=== PATIENT | female | born 1945 | race Caucasian/White ===

== ENCOUNTER 2017-09-02 22:50 | Observation (INO) | payer MEDICARE ==
--- NOTE | 2017-09-02 23:08 | ED ---
General Adult HPI - General Chief complaint: Neuro Symptoms/Deficit Stated complaint: numbing arm X1week Time Seen by Provider: 09/02/17 23:07 Source: patient Mode of arrival: ambulatory Limitations: no limitations - History of Present Illness Initial comments: Fang is a 72-year-old female with a past medical history significant for hypertension and obesity who presents to the emergency department today for evaluation of left shoulder discomfort, chest tightness and fatigue. Patient reports that she usually has a very active lifestyle, however over the past 3 weeks she reports she has felt very fatigued. She states that on Wednesday she did some yard work and became very fatigued and had some back and neck pain. On Wednesday she saw her chiropractor with some improvement in her back and neck pain. However she feels as though throughout the week all she has been able to do his nap and she continues to feel tired. She states that she feels like she cannot get everything she needs to get done done because she is so tired. She states that throughout the week she has noted some intermittent palpitations in her chest but no crushing chest pain. She states that throughout the week she has also noticed some tightness in her left shoulder which she describes as feeling tight and then feeling a warm sensation in her left shoulder radiating down her left arm. She states this happened only intermittently at the beginning week but seems to be happening more frequently and lasting for longer periods of time. She cannot identify any exacerbating or relieving factors to this tightness in her shoulder. It does not seem to be related to movement of her neck or back or arm. It does not seem to be related to exertion or emotional stress. He has never experienced anything like this in the past. The patient denies any fevers, chills, nausea, vomiting any shortness of breath or diaphoresis. She does experience mild chest discomfort and palpitations intermittently throughout the week. She states that this evening she was having some discomfort in her shoulder and fatigue and palpitations, she told her daughter about this and her daughter advised her that they needed to come to the emergency department for evaluation of possible cardiac etiology of her symptoms. Patient states she was then looking online and became concerned that this may be cardiac in nature. She took 3 full dose aspirin and her daughter brought her to the ER for evaluation. Patient states that she has a very strong family history of cardiac disease. Her father had a fatal MS at the age of 59 and her sister had a fatal MS at the age of 52 last month. She states that she was never smoker but her late was a very heavy smoker and she was exposed to many years of secondhand smoke. - Related Data Home Medications Medication Instructions Recorded Confirmed Aspirin 975 mg PO ONCE PRN 09/02/17 09/02/17 Cetirizine HCl [Zyrtec] 10 mg PO DAILY 09/02/17 09/02/17 Estrogens, Conjugated [Premarin] 0.625 mg PO DAILY 09/02/17 09/02/17 Famotidine [Pepcid] 20 mg PO DAILY 09/02/17 09/02/17 Furosemide [Lasix] 20 mg PO DAILY 09/02/17 09/02/17 Losartan Potassium 100 mg PO DAILY 09/02/17 09/02/17 Metoprolol Tartrate [Lopressor] 25 mg PO DAILY 09/02/17 09/02/17 amLODIPine [Norvasc] 10 mg PO DAILY 09/02/17 09/02/17 metFORMIN HCL [Glucophage] 500 mg PO BID 09/02/17 09/02/17 Allergies Allergy/AdvReac Type Severity Reaction Status Date / Time No Known Allergies Allergy Verified 09/02/17 23:23 Review of Systems ROS Statement: Those systems with pertinent positive or pertinent negative responses have been documented in the HPI. ROS Other: All systems not noted in ROS Statement are negative. Constitutional: Denies: fever, weakness Eyes: Denies: eye pain, vision change ENT: Denies: ear pain, throat pain Respiratory: Denies: cough, dyspnea Cardiovascular: Reports: chest pain, palpitations, edema Endocrine: Reports: fatigue Gastrointestinal: Denies: abdominal pain, nausea, vomiting Genitourinary: Denies: urgency, dysuria Musculoskeletal: Reports: back pain (chronic) Skin: Denies: rash, lesions Neurological: Denies: headache, weakness, numbness, paresthesias, confusion Psychiatric: Denies: anxiety, depression Hematological/Lymphatic: Denies: easy bleeding, easy bruising 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 Absent: respiratory distress Cardiovascular Exam: Present: regular rate, normal rhythm GI/Abdominal exam: Present: soft. Absent: distended Rectal exam: Present: deferred Extremities exam: Present: normal inspection, full ROM, normal capillary refill , pedal edema Back exam: Present: normal inspection, full ROM. Absent: CVA tenderness (R), CVA tenderness (L) Neurological exam: Present: alert, oriented X3 Psychiatric exam: Present: normal affect, normal mood Skin exam: Present: warm, dry, intact Course Vital Signs 09/02/17 22:55 Temperature 97.8 F Pulse Rate 81 Respiratory 18 Rate Blood Pressure 156/79 O2 Sat by Pulse 97 Oximetry Medical Decision Making - Medical Decision Making The patient was seen and evaluated, history was obtained from the patient and her daughter at bedside. Patient with 3 weeks of fatigue, 6 days of palpitations, intermittent chest pressure and fatigue Heart score - 5 (Age, Moderate suspicion, risk factors - HTN, HLD, DM, Family History) EKG was taken 12:04 AM - heart rate is 65, rhythm is sinus, there is normal axis , normal intervals, noted to be some T-wave inversions in V3 as well as Q waves diffusely. There is no acute ST elevations or depressions. There are no hyperacute T waves or evidence of acute ischemia, infarction or arrhythmia Labs with no significant abnormalities Troponin and BNP are negative At this time considering the patient's significant history and risk factors I do feel she warrants observation in the hospital for further evaluation by cardiology. Patient care was discussed with Dr. Root who agrees and requests that the patient be given nitro ointment, heparin and have a consult to cardiology as well as an echo ordered. These orders as well as admission orders were placed. Patient and daughter were updated on plan of patient is agreeable. - Lab Data Result diagrams: 09/03/17 00:02 09/03/17 00:02 Lab Results 09/03/17 09/03/17 09/03/17 Range/Units 00:02 00:02 00:02 WBC 8.9 (3.8-10.6) k/uL RBC 4.87 (3.80-5.40) m/uL Hgb 15.1 (11.4-16.0) gm/dL Hct 44.9 (34.0-46.0) % MCV 92.2 (80.0-100.0) fL MCH 30.9 (25.0-35.0) pg MCHC 33.5 (31.0-37.0) g/dL RDW 12.8 (11.5-15.5) % Plt Count 222 (150-450) k/uL Neutrophils % 51 % Lymphocytes % 35 % Monocytes % 8 % Eosinophils % 4 % Basophils % 0 % Neutrophils # 4.5 (1.3-7.7) k/uL Lymphocytes # 3.1 (1.0-4.8) k/uL Monocytes # 0.7 (0-1.0) k/uL Eosinophils # 0.3 (0-0.7) k/uL Basophils # 0.0 (0-0.2) k/uL PT (9.0-12.0) sec INR (<1.2) APTT (22.0-30.0) sec Sodium 140 (137-145) mmol/L Potassium 4.3 (3.5-5.1) mmol/L Chloride 103 (98-107) mmol/L Carbon Dioxide 24 (22-30) mmol/L Anion Gap 13 mmol/L BUN 17 (7-17) mg/dL Creatinine 0.50 L (0.52-1.04) mg/dL Est GFR (CKD-EPI)AfAm >90 (>60 ml/min/1.73 sqM) Est GFR (CKD-EPI)NonAf >90 (>60 ml/min/1.73 sqM) Glucose 164 H (74-99) mg/dL Calcium 9.8 (8.4-10.2) mg/dL Magnesium 1.5 L (1.6-2.3) mg/dL Total Bilirubin 0.2 (0.2-1.3) mg/dL AST 33 (14-36) U/L ALT 42 (9-52) U/L Alkaline Phosphatase 92 (38-126) U/L Troponin I (0.000-0.034) ng/mL NT-Pro-B Natriuret Pep 60 pg/mL Total Protein 6.6 (6.3-8.2) g/dL Albumin 4.0 (3.5-5.0) g/dL TSH 3.750 (0.465-4.680) mIU/L 09/03/17 09/03/17 Range/Units 00:02 00:02 WBC (3.8-10.6) k/uL RBC (3.80-5.40) m/uL Hgb (11.4-16.0) gm/dL Hct (34.0-46.0) % MCV (80.0-100.0) fL MCH (25.0-35.0) pg MCHC (31.0-37.0) g/dL RDW (11.5-15.5) % Plt Count (150-450) k/uL Neutrophils % % Lymphocytes % % Monocytes % % Eosinophils % % Basophils % % Neutrophils # (1.3-7.7) k/uL Lymphocytes # (1.0-4.8) k/uL Monocytes # (0-1.0) k/uL Eosinophils # (0-0.7) k/uL Basophils # (0-0.2) k/uL PT 10.6 (9.0-12.0) sec INR 1.1 (<1.2) APTT 23.6 (22.0-30.0) sec Sodium (137-145) mmol/L Potassium (3.5-5.1) mmol/L Chloride (98-107) mmol/L Carbon Dioxide (22-30) mmol/L Anion Gap mmol/L BUN (7-17) mg/dL Creatinine (0.52-1.04) mg/dL Est GFR (CKD-EPI)AfAm (>60 ml/min/1.73 sqM) Est GFR (CKD-EPI)NonAf (>60 ml/min/1.73 sqM) Glucose (74-99) mg/dL Calcium (8.4-10.2) mg/dL Magnesium (1.6-2.3) mg/dL Total Bilirubin (0.2-1.3) mg/dL AST (14-36) U/L ALT (9-52) U/L Alkaline Phosphatase (38-126) U/L Troponin I <0.012 (0.000-0.034) ng/mL NT-Pro-B Natriuret Pep pg/mL Total Protein (6.3-8.2) g/dL Albumin (3.5-5.0) g/dL TSH (0.465-4.680) mIU/L Disposition Clinical Impression: Chest pain Disposition: ADMITTED IP TO THIS HOSP Condition: Good Decision Time: 00:58
[2017-09-02] MEDS ORDERED: SODIUM CHLORIDE 0.9% 1,000 ML IV STA (23:36)
[2017-09-03 00:15] LABS: Basophils % (A) 0 %; Eosinophils # (A) 0.3 k/uL (0-0.7); Eosinophils % (A) 4 %; HCT 44.9 % (34.0-46.0); HGB 15.1 gm/dL (11.4-16.0); Lymphocytes # (A) 3.1 k/uL (1.0-4.8); Lymphocytes % (A) 35 %; MCH 30.9 pg (25.0-35.0); MCHC 33.5 g/dL (31.0-37.0); MCV 92.2 fL (80.0-100.0); Mean Platelet Volume 9.5; Monocytes # (A) 0.7 k/uL (0-1.0); Monocytes % (A) 8 %; Neutrophils # (A) 4.5 k/uL (1.3-7.7); Neutrophils % (A) 51 %; Platelet Count 222 k/uL (150-450); RBC 4.87 m/uL (3.80-5.40); RDW 12.8 % (11.5-15.5); WBC 8.9 k/uL (3.8-10.6)
[2017-09-03 00:22] LABS: ALT 42 U/L (9-52); AST 33 U/L (14-36); Alkaline Phosphatase 92 U/L (38-126); Anion Gap 13 mmol/L; Blood Urea Nitrogen 17 mg/dL (7-17); Calcium 9.8 mg/dL (8.4-10.2); Carbon Dioxide 24 mmol/L (22-30); Chloride 103 mmol/L (98-107); Glucose 164 mg/dL (74-99); Magnesium 1.5 mg/dL (1.6-2.3); Potassium 4.3 mmol/L (3.5-5.1); Sodium 140 mmol/L (137-145); Total Bilirubin 0.2 mg/dL (0.2-1.3); Total Protein 6.6 g/dL (6.3-8.2)
[2017-09-03 00:23] LABS: INR 1.1 (<1.2); Partial Thromboplastin Time 23.6 sec (22.0-30.0); Prothrombin Time 10.6 sec (9.0-12.0)
--- NOTE | 2017-09-03 00:46 | XR ---
EXAMINATION TYPE: XR chest 2V DATE OF EXAM: 09/03/2017 COMPARISON: NONE HISTORY: Fatigue TECHNIQUE: Frontal and lateral views of the chest are obtained. FINDINGS: There is no heart failure nor confluent pneumonic infiltrate. Costophrenic angles are gita r. There are chest leads. Bony thorax is intact. IMPRESSION: No active cardiopulmonary disease.
[2017-09-03] MEDS ORDERED: NALOXONE 0.4 MG/ML 1 ML VIAL IV PRN (00:54)
[2017-09-03] MEDS ORDERED: NITROGLYCERIN OINT 1 INCH/GM PACKET TOPICAL STA (00:59)
[2017-09-03] MEDS ORDERED: HEPARIN SODIUM,PORCINE 5,000 UNIT/ML 1 ML VIAL IV PRN (01:00)
[2017-09-03] MEDS ORDERED: HEPARIN SODIUM,PORCINE 5,000 UNIT/ML 1 ML VIAL IV ONE (01:00)
[2017-09-03] MEDS ORDERED: HEPARIN SODIUM,PORCINE/D5W PMX 25,000 UNIT in DEXTROSE/WATER 1 500ML.BAG IV SCH (01:15)
[2017-09-03 02:23] VITALS: BMI 37.3
[2017-09-03 06:56] LABS: Glucose,Whole Blood 120 mg/dL (75-99)
[2017-09-03 08:43] VITALS: RESP 18
[2017-09-03] MEDS ORDERED: amLODIPine 10 MG TAB PO SCH (10:45)
[2017-09-03] MEDS ORDERED: LOSARTAN 50 MG TAB PO SCH (10:45)
--- NOTE | 2017-09-03 10:56 | P.CRDCN ---
History of Present Illness History of present illness: Mrs. Rivas is a pleasant 72-year-old female past medical history significant for hypertension and diabetes mellitus. She also has significant family history of premature cardiac disease with her brother and sister mother and father all having premature coronary artery disease in their 50s. She denies personal history of coronary artery disease. She follows with in the office. We've been asked to see her in consultation for complaints of chest pain. She states she feels a tight sensation in the mid-sternal region and radiates to the left shoulder and down the left arm. Symptoms have been intermittent in nature off-and-on for the past couple of days. She has also had some mild shortness of breath, nausea, palpitations and diaphoresis. She denies associated dizziness, vomiting, PND or orthopnea. She states approximately 6 weeks ago she had some lower abdominal discomfort and nausea with nonspecific chest discomfort that lasted for a few days. Ever since then she has been increasingly fatigued with absolutely no energy. EKG reveals sinus mechanism with no acute ST or T-wave abnormalities. Chest x-ray negative for an acute cardiopulmonary process. Laboratory data reviewed, hemoglobin 15.1, platelets 222, sodium 140, potassium 4.3, magnesium 1.5, creatinine 0.5, cardiac enzymes negative 1, TSH 3.75. Current cardiac medications include Lopressor 25 mg daily, amlodipine 10 mg daily, aspirin when necessary, losartan 100 mg daily, Lasix 20 mg daily. She also takes metformin, Pepcid, Premarin and Zyrtec. Most recent echocardiogram performed in the office reveals preserved left ventricular systolic function with ejection fraction 55%. Review of Systems At the time my exam: CONSTITUTIONAL: Denies fever. Denies chills. EYES: Denies blurred vision. Denies vision changes. Denies eye pain. EARS, NOSE, MOUTH & THROAT: Denies headache. Denies sore throat. Denies ear pain. CARDIOVASCULAR: Complains of intermittent chest pain and left arm discomfort. Denies shortness of breath. Denies orthopnea. Denies PND. Denies palpitations. RESPIRATORY: Denies cough. GASTROINTESTINAL: Denies abdominal pain. Denies diarrhea. Denies constipation. Denies nausea. Denies vomiting. MUSCULOSKELETAL: Denies myalgias. INTEGUMENTARY: Denies pruitis. Denies rash. NEUROLOGIC: Denies numbness. Denies tingling. Denies weakness. PSYCHIATRIC: Denies anxiety. Denies depression. ENDOCRINE: Denies fatigue. Denies weight change. Denies polydipsia. Denies polyurina. GENITOURINARY: Denies burning, hematuria or urgency with micturation. HEMATOLOGIC: Denies history of anemia. Denies bleeding. 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 History of Any Multi-Drug Resistant Organisms: None Reported Past Surgical History: Cholecystectomy, Hysterectomy, Orthopedic Surgery Past Anesthesia/Blood Transfusion Reactions: No Reported Reaction Past Psychological History: No Psychological Hx Reported Smoking Status: Never smoker Past Alcohol Use History: Rare Past Drug Use History: None Reported Medications and Allergies Home Medications Medication Instructions Recorded Confirmed Type Aspirin 975 mg PO ONCE PRN 09/02/17 09/02/17 History Cetirizine HCl [Zyrtec] 10 mg PO DAILY 09/02/17 09/02/17 History Estrogens, Conjugated [Premarin] 0.625 mg PO DAILY 09/02/17 09/02/17 History Famotidine [Pepcid] 20 mg PO DAILY 09/02/17 09/02/17 History Furosemide [Lasix] 20 mg PO DAILY 09/02/17 09/02/17 History Losartan Potassium 100 mg PO DAILY 09/02/17 09/02/17 History Metoprolol Tartrate [Lopressor] 25 mg PO DAILY 09/02/17 09/02/17 History amLODIPine [Norvasc] 10 mg PO DAILY 09/02/17 09/02/17 History metFORMIN HCL [Glucophage] 500 mg PO BID 09/02/17 09/02/17 History Allergies Allergy/AdvReac Type Severity Reaction Status Date / Time No Known Allergies Allergy Verified 09/02/17 23:23 Physical Exam Vitals: Vital Signs Temp Pulse Pulse Resp BP BP Pulse Ox 09/03/17 08:25 98.1 F 68 18 150/65 93 L 09/03/17 07:43 95 09/03/17 03:00 16 09/03/17 02:05 98.4 F 63 16 139/64 95 09/03/17 01:41 62 16 133/61 96 09/02/17 22:55 97.8 F 81 18 156/79 97 Intake and Output 06/10/1309/03/17 09/03/17 22:59 06:59 14:59 Other: Voiding Method Toilet # Voids 1 Weight 107.955 kg 107.955 kg Blood pressure 150/65 heart rate 68 afebrile maintaining oxygen saturation on room air GENERAL: This is a 72-year-old female in no apparent distress at the time of my examination. HEENT: Head is atraumatic, normocephalic. Pupils are equal, round. Sclerae anicteric. Conjunctivae are clear. Mucous membranes of the mouth are moist. Neck is supple. There is no jugular venous distention. No carotid bruit is heard. LUNGS: Clear to auscultation no wheezes, rales or rhonchi. No chest wall tenderness is noted on palpation or with deep breathing. HEART: Regular rate and rhythm with systolic murmur at the base, no rubs or gallops. S1 and S2 heard. ABDOMEN: Soft, nontender. Bowel sounds are heard. No organomegaly noted. EXTREMITIES: No evidence of peripheral edema and no calf tenderness noted. VASCULAR: Radial and dorsalis pedis pulses palpated, no evidence of clubbing. NEUROLOGIC: Patient is awake, alert and oriented x3. Results 09/03/17 00:02 09/03/17 00:02 Cardiac Enzymes 09/03/17 09/03/17 Range/Units 00:02 00:02 AST 33 (14-36) U/L Troponin I <0.012 (0.000-0.034) ng/mL Coagulation 09/03/17 09/03/17 Range/Units 00:02 07:29 PT 10.6 (9.0-12.0) sec APTT 23.6 34.4 H (22.0-30.0) sec CBC 09/03/17 Range/Units 00:02 WBC 8.9 (3.8-10.6) k/uL RBC 4.87 (3.80-5.40) m/uL Hgb 15.1 (11.4-16.0) gm/dL Hct 44.9 (34.0-46.0) % Plt Count 222 (150-450) k/uL Comprehensive Metabolic Panel 09/03/17 Range/Units 00:02 Sodium 140 (137-145) mmol/L Potassium 4.3 (3.5-5.1) mmol/L Chloride 103 (98-107) mmol/L Carbon Dioxide 24 (22-30) mmol/L BUN 17 (7-17) mg/dL Creatinine 0.50 L (0.52-1.04) mg/dL Glucose 164 H (74-99) mg/dL Calcium 9.8 (8.4-10.2) mg/dL AST 33 (14-36) U/L ALT 42 (9-52) U/L Alkaline Phosphatase 92 (38-126) U/L Total Protein 6.6 (6.3-8.2) g/dL Albumin 4.0 (3.5-5.0) g/dL Current Medications Generic Name Dose Route Start Last Admin Trade Name Freq PRN Reason Stop Dose Admin Heparin Sodium (Porcine) 0 unit 09/03/17 01:00 Heparin IV PER PROTOCOL PRN Low PTT Protocol Heparin Sodium/Dextrose 25,000 500 mls @ 25.9 mls/hr 09/03/17 01:15 09/03/17 01:38 unit/ IV Solution IV 12 units/kg/hr .[id number] PAUL 25.9 mls/hr Protocol Administration 12 UNITS/KG/HR Naloxone HCl 0.2 mg 09/03/17 00:54 Narcan IV Q2M PRN Opioid Reversal Intake and Output 09/02/17 09/03/17 09/03/17 22:59 06:59 14:59 Other: Voiding Method Toilet # Voids 1 Weight 107.955 kg 107.955 kg 09/03/17 00:02 09/03/17 00:02 Assessment and Plan Assessment: ASSESSMENT 1. Chest pain, atypical. 2. Hypertension 3. Diabetes mellitus 4. Significant family history of heart disease 5. Hypomagnesemia PLAN Obtain 2D echcardiogram and doppler study to assess cardiac structure and function Obtain serial cardiac enzymes to assess for an acute coronary event. Once troponin is resulted we will make a decision regarding stress test. Add lipitor 40 mg daily to her regimen with her significant history. Check lipid profile. Thank you kindly for this consultation. Nurse Practitioner note has been reviewed, I agree with a documented findings and plan of care. Patient was seen and examined.
[2017-09-03] MEDS ORDERED: ATORVASTATIN 40 MG TAB PO SCH (11:00)
[2017-09-03 12:03] LABS: Cholesterol 197 mg/dL (<200); HDL Cholesterol 50 mg/dL (40-60); LDL Cholesterol,Calculated 101 mg/dL (0-99); Triglycerides 230 mg/dL (<150)
[2017-09-03 12:15] VITALS: BP 145/82; PULSE 73; TEMP 97.3
[2017-09-03 12:29] LABS: Glucose,Whole Blood 123 mg/dL (75-99)
--- NOTE | 2017-09-03 12:31 | ECHOF ---
Referral Reason:chest pain MEASUREMENTS -------- HEIGHT: 170.2 cm WEIGHT: 108.0 kg BP: 139/64 IVSd: 1.5 cm (0.6 - 1.1) LVIDd: 3.7 cm (3.9 - 5.3) LVPWd: 1.5 cm (0.6 - 1.1) IVSs: 2.1 cm LVIDs: 1.9 cm LVPWs: 2.2 cm LA Diam: 4.1 cm (2.7 - 3.8) Ao Diam: 3.1 cm (2.0 - 3.7) AV Cusp: 1.8 cm (1.5 - 2.6) LA Diam: 4.2 cm (2.7 - 3.8) MV EXCURSION: 9.371 mm (> 18.000) MV EF SLOPE: 52 mm/s (70 - 150) EPSS: 0.6 cm MV E Eliceo: 0.60 m/s MV DecT: 320 ms MV A Eliceo: 1.10 m/s MV E/A Ratio: 0.55 RAP: 5.00 mmHg RVSP: 13.09 mmHg FINDINGS -------- Sinus rhythm. This was a techncally difficult study with suboptimal views, , Lumason utilized for enhancement of im ages. The left ventricular size is normal. There is moderate concentric left ventricular hypertrophy. O verall left ventricular systolic function is low-normal with, an EF between 50 - 55 %. The right ventricle is normal in size. The left atrial size is normal. The right atrial size is normal. 5.0mg OF Lumason UTLIZED: 2 OR MORE WALL SEGMENTS NOT VISUALIZED. The aortic valve is trileaflet, and appears structurally normal. No aortic stenosis or regurgitation. Mild mitral annular calcification present. Mild mitral regurgitation is present. Mild tricuspid regurgitation present. There is no evidence of pulmonary hypertension. The right v entricular systolic pressure, as measured by Doppler, is 13.09mmHg. There is no pulmonic regurgitation present. The aortic root size is normal. There is no pericardial effusion. CONCLUSIONS -------- 1. This was a techncally difficult study with suboptimal views, , Lumason utilized for enhancement of images. 2. The left ventricular size is normal. 3. There is moderate concentric left ventricular hypertrophy. 4. Overall left ventricular systolic function is low-normal with, an EF between 50 - 55 %. 5. The right ventricle is normal in size. 6. The left atrial size is normal. 7. The right atrial size is normal. 8. 5.0mg OF Lumason UTLIZED: 2 OR MORE WALL SEGMENTS NOT VISUALIZED. 9. The aortic valve is trileaflet, and appears structurally normal. No aortic stenosis or regurgitati on. 10. Mild mitral annular calcification present. 11. Mild mitral regurgitation is present. 12. Mild tricuspid regurgitation present. 13. There is no evidence of pulmonary hypertension. 14. The right ventricular systolic pressure, as measured by Doppler, is 13.09mmHg. 15. There is no pulmonic regurgitation present. 16. The aortic root size is normal. 17. There is no pericardial effusion. [employer] HELPER: Winnie Fajardo RDCS
--- NOTE | 2017-09-03 12:57 | ECHOS ---
STRESS ECHOCARDIOGRAM DATE OF SERVICE: 09/03/2017 INDICATIONS: Chest pain. MEDICATIONS: BASELINE HEART RATE: 73 BASELINE BLOOD PRESSURE: 143/49 MAXIMUM HEART RATE: 134 MAXIMUM BLOOD PRESSURE: 188/62 85% MPHR: 127 100% MPHR: 149 METS: 6.1 MAXIMUM STAGE REACHED: II TOTAL EXERCISE TIME: 4:30 CLINICAL INFORMATION: Patient was exercised for a total period of 4 minutes and 30 seconds. The peak heart rate of 188/62 mmHg was noted. Resting EKG shows normal sinus rhythm with normal NV interval and QRS duration and normal ST-T waves. No ST-segment depression suggestive of ischemia is noted. The baseline echocardiographic images reveals normal left ventricular chamber size with normal left ventricular systolic function. In the immediate post exercise period, normal increase in the wall thickness and contractility is noted. FINAL IMPRESSION: This stress echocardiographic study is negative for stress-induced ischemia. EKG portion of the stress test is not suggestive of ischemia. Patient's exercise tolerance is normal. MMODL / IJN: [id number] /
--- NOTE | 2017-09-03 14:11 | P.HPIM ---
History of Present Illness H&P Date: 09/03/17 Chief Complaint: Chest pain HISTORY AND PHYSICAL AND DISCHARGE SUMMARY: This is a 72-year-old female patient of Dr. Woodruff with past medical history for hypertension, diabetes mellitus type 2, diabetic neuropathy , cervical and lumbar stenosis with recommendations for surgery but she has declined. Patient states that she spends her carmichael in [place] and she drove back at the end of June and then traveled to [place] by plane for a graduation and returned a week ago. She complains of feeling extremely tired for the past 6 weeks and significantly worse over the past 2 weeks. She states she is sleeping a lot. She complains of racing heart but not much chest pain. She occasionally has pain which she thinks is related to GERD and she usually burps and this goes away. She does complain of neck pain which is chronic. She complained of pain in the left shoulder. She does have exertional shortness of breath sometimes but not really bad and states she has more dizziness at times. She is very active physically. Her pain is mostly in the neck and the back of her left shoulder. She denies any cough, wheeze, fever or chills. She does have a strong family history of a sister dying recently at age 52 from a myocardial infarction and stent other family members including her father at age 59. She does have lower extremity edema which is chronic and she's had for a number of years. She does state she had sharp abdominal pain 6 weeks ago which her daughter googled and said this was related to her heart. Regarding her diabetes, her last hemoglobin A1c per the patient was 6.5 in March. Patient presented to [facility] emergency center for evaluation. Chest x-ray shows no acute findings. Initial troponin is negative. Triglycerides 230, cholesterol 197, LDL 101, HDL 50, TSH 3.750. Patient was started on Nitropaste, heparin drip and placed in the observation unit. The patient has been placed in the observation unit and cardiology consult requested. Echocardiogram reveals EF of 50-55%, technically difficult study, mild mitral regurgitation, mild tricuspid regurgitation, no evidence of pulmonary hypertension. Stress echocardiogram has been negative for stress-induced ischemia and patient is cleared for discharge from cardiology. Review of Systems All systems: negative Constitutional: Reports fatigue, Reports lethargy, Reports malaise, Denies chills, Denies fever, Denies poor appetite Eyes: denies blurred vision, denies pain Ears, nose, mouth and throat: Reports vertigo, Denies dysphagia, Denies headache , Denies mouth pain, Denies sore throat Cardiovascular: Reports chest pain, Reports decreased exercise tolerance, Reports dyspnea on exertion, Reports leg edema, Denies lightheadedness, Denies orthopnea, Denies shortness of breath, Denies syncope Respiratory: Denies cough, Denies cough with sputum, Denies dyspnea, Denies excessive sputum, Denies hemoptysis, Denies home oxygen, Denies wheezing Gastrointestinal: Denies abdominal pain, Denies diarrhea, Denies nausea, Denies vomiting Genitourinary: Denies dysuria, Denies hematuria Musculoskeletal: Reports low back pain, Reports neck pain, Denies myalgias Integumentary: Denies pruritus, Denies rash Neurological: Denies numbness, Denies weakness Psychiatric: Denies anxiety, Denies depression Endocrine: Denies fatigue, Denies weight change 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, diabetic neuropathy, restless leg syndrome History of Any Multi-Drug Resistant Organisms: None Reported Past Surgical History: Cholecystectomy, Hysterectomy, Orthopedic Surgery Additional Past Surgical History / Comment(s): Right partial knee replacement, vocal cord nodule removal, Past Anesthesia/Blood Transfusion Reactions: No Reported Reaction Past Psychological History: No Psychological Hx Reported Smoking Status: Never smoker Past Alcohol Use History: Rare Additional Past Alcohol Use History / Comment(s): Patient is a lifelong nonsmoker but states her was a 4 pack per day smoker. She has been for 8 years and lives alone. She drinks alcohol rarely. No illicit drug use. Patient does not use cane or walker at home. No oxygen or nebulizer. Patient is independent. Past Drug Use History: None Reported - Past Family History Father Additional Family Medical History / Comment(s): Father at age 59 with history of coronary artery disease. Mother Additional Family Medical History / Comment(s): Mother at age 79 with history of diabetes and coronary artery disease. Brother(s) Additional Family Medical History / Comment(s): Patient has 2 brothers one from myocardial infarction and one from sepsis following surgery. One brother has history of lymphoma. Sister(s) Additional Family Medical History / Comment(s): Patient has a sister that at age 52 from a myocardial infarction. Daughter(s) Additional Family Medical History / Comment(s): Patient has 3 daughters and one has an autoimmune disease. Patient has 2 sons and one from food poisoning. Medications and Allergies Home Medications Medication Instructions Recorded Confirmed Type Aspirin 975 mg PO ONCE PRN 09/02/17 09/02/17 History Cetirizine HCl [Zyrtec] 10 mg PO DAILY 09/02/17 09/02/17 History Estrogens, Conjugated [Premarin] 0.625 mg PO DAILY 09/02/17 09/02/17 History Famotidine [Pepcid] 20 mg PO DAILY 09/02/17 09/02/17 History Furosemide [Lasix] 20 mg PO DAILY 09/02/17 09/02/17 History Losartan Potassium 100 mg PO DAILY 09/02/17 09/02/17 History Metoprolol Tartrate [Lopressor] 25 mg PO DAILY 09/02/17 09/02/17 History amLODIPine [Norvasc] 10 mg PO DAILY 09/02/17 09/02/17 History metFORMIN HCL [Glucophage] 500 mg PO BID 09/02/17 09/02/17 History Allergies Allergy/AdvReac Type Severity Reaction Status Date / Time No Known Allergies Allergy Verified 09/02/17 23:23 Physical Exam Vitals: Vital Signs Temp Pulse Pulse Resp BP BP Pulse Ox 09/03/17 08:25 98.1 F 68 18 150/65 93 L 09/03/17 07:43 95 09/03/17 03:00 16 09/03/17 02:05 98.4 F 63 16 139/64 95 09/03/17 01:41 62 16 133/61 96 09/02/17 22:55 97.8 F 81 18 156/79 97 Intake and Output 09/02/17 09/03/17 09/03/17 22:59 06:59 14:59 Other: Voiding Method Toilet # Voids 1 Weight 107.955 kg 107.955 kg Gen: This is a 72-year-old female patient. She is resting in bed appears to be comfortable and in no acute distress. HEENT: Head is atraumatic, normocephalic. Pupils equal, round. Sclerae is anicteric. NECK: Supple. No JVD. No lymphadenopathy. No thyromegaly. LUNGS: Clear to auscultation. No wheezes or rhonchi. No intercostal retractions. HEART: Regular rate and rhythm. No murmur. ABDOMEN: Soft. Bowel sounds are present. No masses. No tenderness. EXTREMITIES: No pedal edema. No calf tenderness. NEUROLOGICAL: Patient is awake, alert and oriented x3. Cranial nerves 2 through 12 are grossly intact. Results CBC & Chem 7: 09/03/17 00:02 09/03/17 00:02 Labs: Abnormal Lab Results - Last 24 Hours (Table) 09/03/17 09/03/17 09/03/17 Range/Units 00:02 06:54 07:29 APTT 34.4 H (22.0-30.0) sec Creatinine 0.50 L (0.52-1.04) mg/dL Glucose 164 H (74-99) mg/dL POC Glucose (mg/dL) 120 H (75-99) mg/dL Magnesium 1.5 L (1.6-2.3) mg/dL Thrombosis Risk Factor Assmnt - DVT/VTE Prophylaxis DVT/VTE Prophylaxis: Pharmacologic Prophylaxis ordered - Choose All That Apply Each Factor Represents 1 point: Obesity (BMI >25) Each Risk Factor Represents 2 Points: Age 61-74 years Thrombosis Risk Factor Assessment Total Risk Factor Score: 3 Thrombosis Risk Factor Assessment Level: Moderate Risk Assessment and Plan Plan: 1. Chest pain. Patient placed in the observation unit. Serial troponins, cardiology consult appreciated. Echo stress was negative and patient will be discharged home in stable condition with follow-up with cardiology. 2. Hypertension. Continue Lopressor, Norvasc, Lasix, losartan. 3. Diabetes mellitus type 2. Continue metformin 500 mg twice daily 4. Gastroesophageal reflux disease. Continue Pepcid. Patient placed on the observation unit. Discharge plan: Return home Impression and plan of care have been directed as dictated by the signing physician. Karen Ohara nurse practitioner acting as scribe for signing physician.
[2017-09-04] MEDS ORDERED: METOPROLOL TARTRATE 25 MG TAB PO SCH (09:00)
== END 2017-09-03 15:20 | disposition home or self-care (01) ==
LOC: EC 22:50 → 3OBS 09-03 00:58
PROVIDERS: ADMIT Family Medicine; ATTEND Family Medicine
DX: R07.89 Other chest pain (principal); E11.40 Type 2 diabetes mellitus with diabetic neuropathy, unspecified; E78.5 Hyperlipidemia, unspecified; E83.42 Hypomagnesemia; G25.81 Restless legs syndrome; I10 Essential (primary) hypertension; K21.9 Gastro-esophageal reflux disease without esophagitis; Z79.84 Long term (current) use of oral hypoglycemic drugs; Z79.899 Other long term (current) drug therapy; Z82.49 Family history of ischemic heart disease and other diseases of the circulatory system; Z83.3 Family history of diabetes mellitus; Z90.710 Acquired absence of both cervix and uterus; Z96.651 Presence of right artificial knee joint
CPT/HCPCS: 96361; 96374; 99285; 36415; 94760; 93005; 83880; 80061; 80053; 84443; 83735; 84484; 85025; 85610; 85730; 71046; G0378; C8929; C8930; J1644 ×2; Q9950; 93306; 93351

== ENCOUNTER 2017-10-08 15:39 | Emergency (ER) | payer MEDICARE ==
--- NOTE | 2017-10-08 17:27 | US ---
EXAMINATION TYPE: US venous doppler duplex UE LT DATE OF EXAM: 10/08/2017 COMPARISON: NONE CLINICAL HISTORY: Pain. Patient had a Lexiscan MPI. 3 days ago - IV and injection left inner forearm with bruising in this area. Edema left arm SIDE PERFORMED: left FINDINGS: Grayscale, color doppler, spectral doppler imaging performed of the deep veins of the upper extremities. There is normal flow, compressibility and vascular waveforms. No evidence of DVT as vi sualized. ). IMPRESSION: 1. NEGATIVE FOR DVT, LEFT UPPER EXTREMITY. 2. POSITIVE FOR SUPERFICIAL THROMBUS WITHIN LEFT ANTECUBITAL FOSSA.
--- NOTE | 2017-10-08 17:40 | ED ---
General Adult HPI - General Chief complaint: Extremity Injury, Upper Stated complaint: UE swelling Time Seen by Provider: 10/08/17 15:53 Source: patient Mode of arrival: ambulatory Limitations: no limitations - History of Present Illness Initial comments: This 72-year-old white female presents with a complaint of some left forearm swelling. She apparently had a Lexiscan stress test done this past week and states that she's had some moderate swelling and bruising to her left forearm. She has some minimal pain. She apparently called her manufacturing quality engineer and they told her to come in to make sure that she does not have a blood clot. She denies any chest pain or shortness of breath. She denies any history of definitive DVT or PE. No other complaints or modifying factors. - Related Data Home Medications Medication Instructions Recorded Confirmed Cetirizine HCl [Zyrtec] 10 mg PO DAILY 09/02/17 10/08/17 Estrogens, Conjugated [Premarin] 0.625 mg PO DAILY 09/02/17 10/08/17 Famotidine [Pepcid] 20 mg PO DAILY 09/02/17 10/08/17 Furosemide [Lasix] 20 mg PO DAILY 09/02/17 10/08/17 Losartan Potassium 100 mg PO DAILY 09/02/17 10/08/17 Metoprolol Tartrate [Lopressor] 25 mg PO DAILY 09/02/17 10/08/17 amLODIPine [Norvasc] 10 mg PO DAILY 09/02/17 10/08/17 metFORMIN HCL [Glucophage] 500 mg PO BID 09/02/17 10/08/17 Previous Rx's Medication Instructions Recorded Atorvastatin [Lipitor] 40 mg PO DAILY #30 tab 09/03/17 Allergies Allergy/AdvReac Type Severity Reaction Status Date / Time No Known Allergies Allergy Verified 10/08/17 15:59 Review of Systems ROS Statement: Those systems with pertinent positive or pertinent negative responses have been documented in the HPI. ROS Other: All systems not noted in ROS Statement are negative. 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, diabetic neuropathy, restless leg syndrome History of Any Multi-Drug Resistant Organisms: None Reported Past Surgical History: Cholecystectomy, Hysterectomy, Orthopedic Surgery Additional Past Surgical History / Comment(s): Right partial knee replacement, vocal cord nodule removal, Past Anesthesia/Blood Transfusion Reactions: No Reported Reaction Past Psychological History: No Psychological Hx Reported Smoking Status: Never smoker Past Alcohol Use History: Rare Past Drug Use History: None Reported - Past Family History Father Additional Family Medical History / Comment(s): Father at age 59 with history of coronary artery disease. Mother Additional Family Medical History / Comment(s): Mother at age 79 with history of diabetes and coronary artery disease. Brother(s) Additional Family Medical History / Comment(s): Patient has 2 brothers one from myocardial infarction and one from sepsis following surgery. One brother has history of lymphoma. Sister(s) Additional Family Medical History / Comment(s): Patient has a sister that at age 52 from a myocardial infarction. Daughter(s) Additional Family Medical History / Comment(s): Patient has 3 daughters and one has an autoimmune disease. Patient has 2 sons and one from food poisoning. General Exam - General Exam Comments Initial Comments: GENERAL: The patient is well nourished and well hydrated. VITAL SIGNS: Heart rate, blood pressure, respiratory rate reviewed as recorded in nurse's notes. EYES: Pupils are round and reactive. Extraocular movements are intact. No conjunctival / lid redness or swelling. ENT: No external evidence of injury, swelling, or ecchymosis. Airway is patent. Throat is clear. NECK: Nontender. No swelling or evidence of injury. No subcutaneous emphysema. Trachea is midline. No thyroid mass. HEART: Regular rate and rhythm. Good peripheral pulses. LUNGS/CHEST: Breath sounds clear and equal bilaterally. No rales, rhonchi, or wheezes. No ecchymosis, subcutaneous emphysema, or tenderness. ABDOMEN: Abdomen soft without tenderness. No palpable masses or organomegaly. No peritoneal signs. No abdominal wall swelling or ecchymosis. EXTREMITIES: No extremity tenderness. Normal muscle tone and function. No thoracolumbar tenderness. NEUROLOGIC: Sensation is grossly intact. Cranial nerve exam reveals face is symmetrical, tongue is midline, speech is clear. SKIN: There is some mild ecchymosis. The previous IV site noted to the left forearm. There is some mild tenderness and swelling. There is some ropiness of the vein in this area as well. No other rash noted. No induration or masses noted. PSYCHIATRIC: Alert and oriented. Appropriate behavior and judgment. Limitations: no limitations Course Vital Signs 10/08/17 15:47 Temperature 98.5 F Pulse Rate 79 Respiratory 18 Rate Blood Pressure 146/79 O2 Sat by Pulse 98 Oximetry Medical Decision Making - Medical Decision Making The patient was seen and examined. All diagnostics are reviewed. The patient had a upper extremity venous Doppler done on the left side and this does not show any evidence of DVT. They do note a superficial thrombophlebitis this is consistent with the exam. She is instructed to utilize some aspirin as well as warm compresses. She understands and agrees with this plan and leaves in no distress. Disposition Clinical Impression: Superficial thrombophlebitis of arm Disposition: HOME SELF-CARE Condition: Good Instructions: Superficial Thrombophlebitis (ED) Is patient prescribed a controlled substance at d/c from ED?: No Referrals: Jose Woodruff DO [Primary Care Provider] - 10/13/17 Time of Disposition: 17:39
[2017-10-08 18:07] VITALS: BP 158/71; PULSE 78; RESP 16; TEMP 97.8
== END 2017-10-08 18:06 | disposition home or self-care (01) ==
LOC: EC 15:39
DX: I80.8 Phlebitis and thrombophlebitis of other sites (principal); I10 Essential (primary) hypertension; E11.40 Type 2 diabetes mellitus with diabetic neuropathy, unspecified; Z79.84 Long term (current) use of oral hypoglycemic drugs; Z79.899 Other long term (current) drug therapy; Z79.3 Long term (current) use of hormonal contraceptives
CPT/HCPCS: 99283

== ENCOUNTER → 2018-08-16 | Outpatient (CLI) | payer MEDICARE ==
--- NOTE | 2018-08-16 13:54 | XR ---
EXAMINATION TYPE: XR chest 2V DATE OF EXAM: 08/16/2018 COMPARISON: 09/03/2017 HISTORY: Chest and back pain TECHNIQUE: Frontal and lateral views of the chest are obtained. FINDINGS: There is no focal air space opacity, pleural effusion, or pneumothorax seen. The cardiac silhouette size is within normal limits. There is tortuosity of the descending thoracic aorta. The o sseous structures are intact. Moderate multilevel degenerative changes are seen of the visualized tho racolumbar spine. Cholecystectomy clips are noted. IMPRESSION: No acute cardiac pulmonary process. Moderate degenerative disc disease of the visualized thoracic and lumbar spine. Vertebral body heights appear unchanged from 09/03/2017 and could be better assessed with thoracic and lumbar spine radiographs if there is further concern.
== END | disposition home or self-care (01) ==
LOC: RADXRMAIN 12:43
PROVIDERS: ATTEND Family Medicine
DX: R05 Cough (principal)
CPT/HCPCS: 71046

== ENCOUNTER → 2020-08-05 | Outpatient (CLI) | payer MEDICARE ==
--- NOTE | 2020-08-06 10:14 | MM ---
Reason for exam: screening (asymptomatic). Last mammogram was performed 4 years and 10 months ago. History: Patient is postmenopausal. Taking estrogen for 19 years beginning at age 45. Physical Findings: A clinical breast exam by your physician is recommended on an annual basis and results should be correlated with mammographic findings. MG 3D Screening Mammo W/Cad Bilateral CC and MLO view(s) were taken. Prior study comparison: October 21, 2015, bilateral MG 3d screening mammo w/cad. August 09, 2013, bilateral MG screening mammo w CAD. There are scattered fibroglandular densities. Benign calcifications. No significant changes when compared with prior studies. ASSESSMENT: Benign, BI-RAD 2 RECOMMENDATION: Routine screening mammogram of both breasts in 1 year.
== END | disposition home or self-care (01) ==
LOC: RADMAMWWP 09:44
PROVIDERS: ATTEND Family Medicine
DX: Z12.31 Encounter for screening mammogram for malignant neoplasm of breast (principal); Z78.0 Asymptomatic menopausal state
CPT/HCPCS: 77063; 77067

== ENCOUNTER → 2020-10-01 | Outpatient (CLI) | payer MEDICARE | END | disposition home or self-care (01) | CPT/HCPCS: 36415; 80053; 80061; 83036; 84439; 84443; 85027 ==

== ENCOUNTER → 2021-08-07 | Outpatient (CLI) | payer MEDICARE ==
--- NOTE | 2021-08-07 19:29 | US ---
EXAMINATION TYPE: US carotid duplex BILAT DATE OF EXAM: 08/07/2021 COMPARISON: NONE CLINICAL HISTORY: 76-year-old female I65.29 OCCLUSION AND STENOSIS OF UNSPECIFIED CAROTID ARTERY. Pat iedeidra states her hand curl up. HTN controlled with meds. No hx TIA. TECHNIQUE: Carotid duplex ultrasound examination. Indirect Doppler criteria was utilized. FINDINGS: EXAM MEASUREMENTS: RIGHT: Peak Systolic Velocity (PSV) cm/sec ----- Right CCA: 47.6 ----- Right ICA: 75.7 ----- Right ECA: 91.1 ICA/CCA ratio: 1.6 RIGHT: End Diastole cm/sec ----- Right CCA: 13.6 ----- Right ICA: 32.9 ----- Right ECA: 0.0 LEFT: Peak Systolic Velocity (PSV) cm/sec ----- Left CCA: 74.7 ----- Left ICA: 87.9 ----- Left ECA: 153.6 ICA/CCA ratio: 1.2 LEFT: End Diastole cm/sec ----- Left CCA: 17.5 ----- Left ICA: 18.6 ----- Left ECA: 11.6 VERTEBRALS (direction of flow): Right Vertebral: Antegrade Left Vertebral: Antegrade Rhythm: Normal Computer Methods Analyst notes: Limited due to patient breathing No significant stenosis. Mild plaque in bilateral bulbs. Mildly elevated left ECA velocity. IMPRESSION: Mild atherosclerotic change. No hemodynamically significant internal carotid artery stenosis on eithe r side. Criteria for Assigning % of Stenosis / Diameter reduction (Estimation based on the indirect measurements of the internal carotid artery velocities (ICA PSV). 1. Normal (no stenosis)=ICA PSV < 125 cm/s: ratio < 2.0: ICA EDV<40 cm/s. 2. Less than 50% stenosis=ICA PSV < 125 cm/s: ratio < 2.0: ICA EDV<40 cm/s. 3. 50 to 69% stenosis=ICA PSV of 125 to 230 cm/s: ration 2.0 ? 4.0: ICA EDV 40-100 cm/s. 4. Greater than 70% stenosis to near occlusion= ICA PSV > 230 cm/s: ratio > 4.0: ICA EDV > 100 cm/s. 5. Near occlusion= ICA PSV velocities may be low or undetectable: variable ratio and ICA EDV. 6. Total occlusion=unable to detect flow.
== END | disposition home or self-care (01) ==
LOC: RADUSWWP 12:01
PROVIDERS: ATTEND Family Medicine
DX: I10 Essential (primary) hypertension (principal); I65.29 Occlusion and stenosis of unspecified carotid artery
CPT/HCPCS: 93880

== ENCOUNTER 2022-11-16 12:53 | Emergency (ER) | payer MEDICARE ==
[2022-11-16 13:26] VITALS: TEMP 98.4
--- NOTE | 2022-11-16 13:44 | ED ---
Abdominal Pain HPI - General Source: patient, RN notes reviewed Mode of arrival: ambulatory Limitations: no limitations - History of Present Illness MD Complaint: abdominal pain Onset/Timin -: days(s) Location: [facility] <Nita Vazquez - Last Filed: 11/16/22 13:43> <Sheridan Mcmillan - Last Filed: 11/16/22 19:58> - General Chief Complaint: Abdominal Pain Stated Complaint: abd pain Time Seen by Provider: 11/16/22 13:41 - History of Present Illness Initial Comments: This is a 77-year-old female who presents to the emergency department for left lower quadrant pain. States that this started 4 days ago and she describes the pain as sharp. Denies any nausea, vomiting, diarrhea or constipation. Unsure if she has a history of diverticulitis. (Nita Vazquez) Quick note reviewed this is a pleasant 77-year-old female with no significant past medical history who presents to the emergency department with a chief complaint of left lower quadrant abdominal pain. Patient reports her symptoms have been progressing for 4 days. She reports that is worse when she lays down. She describes the pain as sharp that we'll radiate down her left groin. It is worse with movement at times. She denies any fevers, nausea, vomiting, melena, hematochezia, dysuria, hematuria. Denies any abdominal surgeries. She is not taken anything for her pain. (Sheridan Mcmillan) - Related Data Home Medications Medication Instructions Recorded Confirmed Estrogens, Conjugated [Premarin] 0.625 mg PO DAILY 09/02/17 11/16/22 Famotidine [Pepcid] 20 mg PO DAILY 09/02/17 11/16/22 Furosemide [Lasix] 20 mg PO DAILY 09/02/17 11/16/22 Losartan Potassium 100 mg PO DAILY 09/02/17 11/16/22 amLODIPine [Norvasc] 10 mg PO DAILY 09/02/17 11/16/22 metFORMIN HCL [Glucophage] 500 mg PO BID 09/02/17 11/16/22 Albuterol Inhaler [Ventolin Hfa 2 puff INHALATION RT-Q4H PRN 11/16/22 11/16/22 Inhaler] Metoprolol Tartrate [Lopressor] 25 mg PO BID 11/16/22 11/16/22 glipiZIDE [Glucotrol] 10 mg PO DAILY 11/16/22 11/16/22 Allergies Allergy/AdvReac Type Severity Reaction Status Date / Time No Known Allergies Allergy Verified 11/16/22 16:47 Review of Systems ROS Other: All systems not noted in ROS Statement are negative. <Nita Vazquez - Last Filed: 11/16/22 13:43> ROS Other: All systems not noted in ROS Statement are negative. <Sheridan Mcmillan - Last Filed: 11/16/22 19:58> ROS Statement: Those systems with pertinent positive or pertinent negative responses have been documented in the HPI. 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, diabetic neuropathy, restless leg syndrome History of Any Multi-Drug Resistant Organisms: None Reported Past Surgical History: Cholecystectomy, Hysterectomy, Orthopedic Surgery Additional Past Surgical History / Comment(s): Right partial knee replacement, vocal cord nodule removal, Past Anesthesia/Blood Transfusion Reactions: No Reported Reaction Past Psychological History: No Psychological Hx Reported Smoking Status: Never smoker Past Alcohol Use History: Rare Past Drug Use History: None Reported - Past Family History Father Additional Family Medical History / Comment(s): Father at age 59 with history of coronary artery disease. Mother Additional Family Medical History / Comment(s): Mother at age 79 with history of diabetes and coronary artery disease. Brother(s) Additional Family Medical History / Comment(s): Patient has 2 brothers one from myocardial infarction and one from sepsis following surgery. One brother has history of lymphoma. Sister(s) Additional Family Medical History / Comment(s): Patient has a sister that at age 52 from a myocardial infarction. Daughter(s) Additional Family Medical History / Comment(s): Patient has 3 daughters and one has an autoimmune disease. Patient has 2 sons and one from food poisoning. <Nita Vazquez - Last Filed: 11/16/22 13:43> General Exam Limitations: no limitations <Nita Vazquez - Last Filed: 11/16/22 13:43> <Sheridan Mcmillan - Last Filed: 11/16/22 19:58> - General Exam Comments Initial Comments: Visual Physical Exam Vital signs reviewed General: Well-appearing, nontoxic, no acute distress. Head: Normocephalic, atraumatic Eyes: PERRLA, EOMI ENT: Airway patent Chest: Nonlabored breathing Skin: No visual rash, normal skin tone Neuro: Alert and oriented 3 Musculoskeletal: No gross abnormalities I performed the QuickNote portion of this chart. Signed Nita Vazquez PA-C. (Nita Vazquez) General: Alert, in no acute distress Head: atraumatic normocephalic. Eyes PERRL, EOMI intact, mucous membranes moist Respiratory: Lungs clear to auscultation bilaterally Cardiovascular: Heart rate regular rate and rhythm Abdominal: Soft without guarding or rebound Extremities: Normal inspection with full range of motion and normal capillary refill Neuroogic: alert and oriented 3, CN II-XII intact, able to ambulate with steady gait Skin: warm dry and intact with normal color (Sheridan Mcmillan) Course Vital Signs 11/16/22 11/16/22 13:22 18:00 Temperature 98.4 F Pulse Rate 79 98 Respiratory 18 20 Rate Blood Pressure 135/77 130/68 O2 Sat by Pulse 96 98 Oximetry Medical Decision Making - Lab Data Result diagrams: 11/16/22 13:45 11/16/22 13:45 <Sheridan Mcmillan - Last Filed: 11/16/22 19:58> - Medical Decision Making Was pt. sent in by a medical professional or institution (EJ Morillo, MITIGATION SUPERVISOR, urgent care, hospital, or fdc...) When possible be specific @ -[No] Did you speak to anyone other than the patient for history (EMS, parent, family, police, friend...)? What history was obtained from this source @ -[No] Did you review nursing and triage notes (agree or disagree)? Why? @ -[I reviewed and agree with nursing and triage notes] Were old charts reviewed (outside hosp., previous admission, EMS record, old EKG, old radiological studies, urgent care reports/EKG's, fdc records)? Report findings @ -[No old charts were reviewed] Differential Diagnosis (chest pain, altered mental status, abdominal pain women, abdominal pain men, vaginal bleeding, weakness, fever, dyspnea, syncope, headache, dizziness, GI bleed, back pain, seizure, CVA, palpatations, mental health, musculoskeletal)? @ -[not applicable] EKG interpreted by me (3pts min.). @ -[As above] X-rays interpreted by me (1pt min.). @ -[None done] CT interpreted by me (1pt min.). @ -CT abdomen and pelvis does not reveal any evidence of acute intra-abdominal process U/S interpreted by me (1pt. min.). @ -[None done] What testing was considered but not performed or refused? (CT, X-rays, U/S, labs)? Why? @ -[None] What meds were considered but not given or refused? Why? @ -[None] Did you discuss the management of the patient with other professionals (laura gramajo i.e. , PA, MITIGATION SUPERVISOR, lab, RT, psych nurse, manager social media, metal roofer, teacher, community cultural development officer, director of casework)? Give summary @ -[No] Was smoking cessation discussed for >3mins.? @ -[No] Was critical care preformed (if so, how long)? @ -[No] Were there social determinants of health that impacted care today? How? (Homelessness, low income, unemployed, alcoholism, drug addiction, tr ansportation, low edu. Level, literacy, decrease access to med. care, usp, rehab)? @ -[No] Was there de-escalation of care discussed even if they declined (Discuss DNR or withdrawal of care, Hospice)? DNR status @ -[No] What co-morbidities impacted this encounter? (DM, HTN, Smoking, COPD, CAD, Cancer, CVA, ARF, Chemo, Hep., AIDS, mental health diagnosis, sleep apnea, morbid obesity)? @ -[None] Was patient admitted / discharged? Hospital course, mention meds given and route, prescriptions, significant lab abnormalities, going to OR and other pertinent info. @ -Discharged. This is a pleasant 77-year-old female who presents emergency Department with left lower quadrant abdominal pain. Patient had a thorough history and physical exam performed. Physical exam reveals mild left lower quadrant tenderness. Patient had extensive lab work and imaging studies performed which was essentially unremarkable and all negative. I discussed the results in detail with the patient verbalized understanding all questions were addressed. She is agreeable with the plan for discharge home with recommended close follow-up with PCP. Return precautions were discussed at length. Patient discharged in stable condition. Case discussed with Dr. Mckenna [facility] who agrees with plan of care Undiagnosed new problem with uncertain prognosis? @ -[No] Drug Therapy requiring intensive monitoring for toxicity (Heparin, Nitro, Insulin, Cardizem)? @ -[No] Were any procedures done? @ -[No] Diagnosis/symptom? @ -Left Lower Quadrant Abdominal Pain Acute, or Chronic, or Acute on Chronic? @ -Acute Uncomplicated (without systemic symptoms) or Complicated (systemic symptoms)? @ -Uncomplicated Side effects of treatment? @ -[No] Exacerbation, Progression, or Severe Exacerbation? @ -[No] Poses a threat to life or bodily function? How? (Chest pain, [place], [place], pneumonia, PE, COPD, DKA, ARF, appy, cholecystitis, CVA, Diverticulitis, Homicidal, Suic idal, threat to staff... and all critical care pts) @ -Low likelihood (Sheridan Mcmillan) - Lab Data Lab Results 11/16/22 11/16/22 11/16/22 Range/Units 13:45 13:45 15:15 WBC 7.5 (3.8-10.6) k/uL RBC 4.67 (3.80-5.40) m/uL Hgb 14.0 (11.4-16.0) gm/dL Hct 42.5 (34.0-46.0) % MCV 91.1 (80.0-100.0) fL MCH 29.9 (25.0-35.0) pg MCHC 32.9 (31.0-37.0) g/dL RDW 13.8 (11.5-15.5) % Plt Count 228 (150-450) k/uL MPV 9.6 Neutrophils % 68 % Lymphocytes % 20 % Monocytes % 7 % Eosinophils % 2 % Basophils % 0 % Neutrophils # 5.1 (1.3-7.7) k/uL Lymphocytes # 1.5 (1.0-4.8) k/uL Monocytes # 0.5 (0-1.0) k/uL Eosinophils # 0.2 (0-0.7) k/uL Basophils # 0.0 (0-0.2) k/uL Sodium 137 (137-145) mmol/L Potassium 4.2 (3.5-5.1) mmol/L Chloride 104 (98-107) mmol/L Carbon Dioxide 20 L (22-30) mmol/L Anion Gap 13 mmol/L BUN 16 (7-17) mg/dL Creatinine 0.56 (0.52-1.04) mg/dL Est GFR (CKD-EPI)AfAm >90 (>60 ml/min/1.73 sqM) Est GFR (CKD-EPI)NonAf >90 (>60 ml/min/1.73 sqM) Glucose 153 H (74-99) mg/dL Calcium 9.5 (8.4-10.2) mg/dL Magnesium 1.4 L (1.6-2.3) mg/dL Total Bilirubin 0.6 (0.2-1.3) mg/dL AST 43 H (14-36) U/L ALT 36 H (4-34) U/L Alkaline Phosphatase 96 (38-126) U/L Total Protein 7.0 (6.3-8.2) g/dL Albumin 4.1 (3.5-5.0) g/dL Amylase 44 (30-110) U/L Lipase 91 (23-300) U/L Urine Color Light Yellow Urine Appearance Clear (Clear) Urine pH 5.5 (5.0-8.0) Ur Specific Adrian 1.010 (1.001-1.035) Urine Protein Negative (Negative) Urine Glucose (UA) Negative (Negative) Urine Ketones Negative (Negative) Urine Blood Negative (Negative) Urine Nitrite Negative (Negative) Urine Bilirubin Negative (Negative) Urine Urobilinogen <2.0 (<2.0) mg/dL Ur Leukocyte Esterase Negative (Negative) Disposition <Nita Vazquez - Last Filed: 11/16/22 13:43> Is patient prescribed a controlled substance at d/c from ED?: No Time of Disposition: 17:44 <Sheridan Mcmillan - Last Filed: 11/16/22 19:58> Clinical Impression: Left lower quadrant pain, Transaminitis Disposition: HOME SELF-CARE Condition: Stable Additional Instructions: Please return to the nearest emergency department symptoms worsen or persist Referrals: Jose Woodruff DO [Primary Care Provider] - 1-2 days
[2022-11-16 14:07] LABS: Basophils % (A) 0 %; Eosinophils # (A) 0.2 k/uL (0-0.7); Eosinophils % (A) 2 %; HCT 42.5 % (34.0-46.0); Lymphocytes # (A) 1.5 k/uL (1.0-4.8); Lymphocytes % (A) 20 %; MCH 29.9 pg (25.0-35.0); MCHC 32.9 g/dL (31.0-37.0); MCV 91.1 fL (80.0-100.0); Mean Platelet Volume 9.6; Monocytes # (A) 0.5 k/uL (0-1.0); Monocytes % (A) 7 %; Neutrophils # (A) 5.1 k/uL (1.3-7.7); Neutrophils % (A) 68 %; Platelet Count 228 k/uL (150-450); RBC 4.67 m/uL (3.80-5.40); RDW 13.8 % (11.5-15.5); WBC 7.5 k/uL (3.8-10.6)
[2022-11-16 14:09] LABS: ALT 36 U/L (4-34); AST 43 U/L (14-36); African American GFR (CKD) >90 (>60 ml/min/1.73 sqM); Albumin 4.1 g/dL (3.5-5.0); Alkaline Phosphatase 96 U/L (38-126); Amylase 44 U/L (30-110); Anion Gap 13 mmol/L; Blood Urea Nitrogen 16 mg/dL (7-17); Calcium 9.5 mg/dL (8.4-10.2); Carbon Dioxide 20 mmol/L (22-30); Chloride 104 mmol/L (98-107); Glucose 153 mg/dL (74-99); Lipase 91 U/L (23-300); Magnesium 1.4 mg/dL (1.6-2.3); Non-African American GFR(CKD) >90 (>60 ml/min/1.73 sqM); Potassium 4.2 mmol/L (3.5-5.1); Sodium 137 mmol/L (137-145); Total Bilirubin 0.6 mg/dL (0.2-1.3)
[2022-11-16 15:38] LABS: Appearance,Urine Clear (Clear); Bilirubin,Urine Negative (Negative); Blood,Urine Negative (Negative); Color,Urine Light Yellow; Glucose,Urine (UA) Negative (Negative); Ketones,Urine Negative (Negative); Leukocyte Esterase,Urine Negative (Negative); Nitrite,Urine Negative (Negative); PH, Urine 5.5 (5.0-8.0); Protein,Urine Negative (Negative); Urobilinogen,Urine <2.0 mg/dL (<2.0)
--- NOTE | 2022-11-16 17:28 | CT ---
EXAMINATION TYPE: CT abdomen pelvis w con CT DLP: 1713.7 mGycm, Automated exposure control for dose reduction was used. DATE OF EXAM: 11/16/2022 4:48 PM COMPARISON: CT abdomen pelvis most recent from CLINICAL INDICATION:Female, 77 years old with history of LLQ abdominal pain; LLQ abdominal pain. TECHNIQUE: Axial CT of the abdomen and pelvis. Sagittal and coronal reformats were created on a [employer] workstation. Contrast used:100 ml mL of Isovue 300 with IV Contrast, (none if empty) Oral contrast used: without Oral Contrast (none if empty) FINDINGS: LOWER CHEST: There is mildly enlarged for size. There is mitral valve annular calcifications. ABDOMEN LIVER: Diffusely hypoattenuating parenchyma. GALLBLADDER AND BILE DUCTS: The gallbladder is surgically absent. PANCREAS: Unremarkable. SPLEEN: Unremarkable. ADRENAL GLANDS: Unremarkable. KIDNEYS AND URETERS: No evidence for hydronephrosis. Nonobstructing left 2 mm calculus. No right rafat l calculi or nephrosis. PELVIS BLADDER: Unremarkable REPRODUCTIVE: The uterus is surgically absent. ABDOMEN & PELVIS STOMACH AND BOWEL: No evidence of bowel obstruction. Scattered colonic diverticula. PERITONEUM/RETROPERITONEUM: No evidence of pneumoperitoneum or free fluid. VASCULATURE: No evidence of aortic aneurysm. MUSCULOSKELETAL: No acute osseous abnormalities. Severe disc degeneration changes are present through out the thoracolumbar spine. LYMPH NODES: No gross evidence for lymphadenopathy. SOFT TISSUE/ABDOMINAL WALL: Fat-containing umbilical hernia. IMPRESSION: 1. Colonic diverticula without evidence for acute diverticulitis. Moderate stool burden throughout t he colon. 2. Hepatic steatosis. 3. Nonobstructing left renal calculus.
[2022-11-16 18:03] VITALS: BP 130/68; PULSE 98; RESP 20
== END 2022-11-16 18:02 | disposition home or self-care (01) ==
LOC: EC 12:53
DX: R10.32 Left lower quadrant pain (principal); R74.01 Elevation of levels of liver transaminase levels; E11.40 Type 2 diabetes mellitus with diabetic neuropathy, unspecified; I10 Essential (primary) hypertension; Z79.84 Long term (current) use of oral hypoglycemic drugs; Z79.899 Other long term (current) drug therapy; Z90.49 Acquired absence of other specified parts of digestive tract
CPT/HCPCS: 36415; 80053; 82150; 83690; 83735; 85025; 81003; 74177; 99284; Q9967

== ENCOUNTER → 2023-03-19 | Outpatient (CLI) | payer MEDICARE ==
--- NOTE | 2023-03-19 19:17 | XR ---
EXAMINATION TYPE: XR abdomen 1V DATE OF EXAM: 03/19/2023 3:08 PM CLINICAL INDICATION:Female, 77 years old with history of R10.9; COMPARISON: 11/16/2022. TECHNIQUE: One radiographic view of the abdomen was obtained. FINDINGS: The bowel gas pattern is nonspecific without dilated loops of small or large bowel. There i s no evidence for organomegaly or pneumoperitoneum. The osseous structures are intact. No abnormal calcifications are present. Fecal material and gas are demonstrated throughout the colon and rectum. Mild degeneration changes throughout the hip joints. Right upper quadrant course centrally clips. IMPRESSION: Nonspecific bowel gas pattern without radiographic evidence for acute process.
== END | disposition home or self-care (01) ==
LOC: RADXRMAIN 14:51
PROVIDERS: ATTEND Family Medicine
DX: R10.9 Unspecified abdominal pain (principal); R14.0 Abdominal distension (gaseous)
CPT/HCPCS: 74018

== ENCOUNTER → 2023-05-05 | Outpatient (CLI) | payer MEDICARE ==
--- NOTE | 2023-05-08 12:16 | MR ---
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 TECHNIQUE: Multiplanar multi-sequence imaging was performed without contrast. Post contrast imaging was performed. Post IV contrast subtraction images were also submitted for review. IV Contrast: 9 cc Gadobutrol FINDINGS: LOWER CHEST: No gross irregularity. ABDOMEN Liver: No evidence for cirrhosis. Signal dropout compatible with hepatic steatosis on chemical shift in phase imaging. Gallbladder and Bile ducts: No evidence for ductal dilation, or biliary stricture or evidence of chol edocholithiasis. The gallbladder is surgically absent with presumably physiologic dilation of the ext ra hepatic biliary system which can be seen. Pancreas: No ductal dilation. No evidence for solid mass. Spleen: Normal for size. Heterogenous appearance appearance of the spleen that demonstrates areas of nonenhancement which are predominantly peripherally based and wedge-shaped. No suspicious postcontras t enhancement. Adrenal glands: Unremarkable. Kidneys: No evidence for obstructive uropathy. No suspicious renal masses. Stomach and Bowel: No evidence for bowel wall thickening or evidence for obstruction.. Scattered col onic diverticula present. Peritoneum: No evidence of pneumoperitoneum or free fluid. Vasculature: No aortic aneurysm. Musculoskeletal: The osseous structures appear intact. Multilevel degeneration changes with facet ost eophytes with disc space narrowing and facet arthropathy there is at least moderate spinal canal sten osis at L2-L3. Lymph Nodes: No gross evidence for lymphadenopathy. Abdominal wall: Unremarkable. IMPRESSION: 1. Heterogenous appearance of the spleen with multiple wedge-shaped areas of nonenhancement most com patible with infarct. These are felt to be on prior on 11/16/2022. 2. Hepatic steatosis. 3. At least moderate spinal canal stenosis at L2-L3 seen on coronal imaging only. MRI lumbar spine m ore accurately characterize spinal and neural foraminal stenosis if clinically desired.
== END | disposition home or self-care (01) ==
LOC: RADMRIMAIN 21:30
PROVIDERS: ATTEND Internal Medicine Hematology & Oncology
DX: K76.0 Fatty (change of) liver, not elsewhere classified (principal); C76.2 Malignant neoplasm of abdomen; D73.89 Other diseases of spleen; M48.061 Spinal stenosis, lumbar region without neurogenic claudication
CPT/HCPCS: 74183; A9585